=== PATIENT | male | born 1950 | race Caucasian/White ===

== ENCOUNTER 2017-07-29 21:19 | Observation (INO) | payer MEDICARE, BC ==
[2017-07-29] MEDS ORDERED: NALOXONE 0.4 MG/ML 1 ML VIAL IV PRN (22:40)
--- NOTE | 2017-07-29 22:47 | ED ---
General Adult HPI - General Chief complaint: Urogenital Stated complaint: Urinary retention Time Seen by Provider: 07/29/17 22:03 Source: patient, family, EMS, RN notes reviewed, old records reviewed (Chart reviewed from [facility]) Mode of arrival: EMS Limitations: no limitations - History of Present Illness Initial comments: Patient is a pleasant 67-year-old male presenting to the emergency Department as a transfer from [facility]. Patient did have difficulty with urinating and constipated feeling. Majority of history is taken from the brother. Patient had Danielle catheter placed with 2-1/2 L of urinary output. Patient did have a recent urinary tract infection and recently did finish Keflex. Patient did have noticed elevated BUN and creatinine. There was some concern for possible prostatitis and patient was given 2 g Rocephin. Patient states he does feel much better since Danielle catheter has been placed. - Related Data Home Medications Medication Instructions Recorded Confirmed Carbidopa-Levodopa 25-100 mg 1 tab PO DAILY 07/29/17 07/29/17 [Sinemet 25-100] Cholecalciferol [Vitamin D3] 2,000 unit PO DAILY 07/29/17 07/29/17 Docusate [Colace] 100 mg PO BID PRN 07/29/17 07/29/17 FLUoxetine HCL [PROzac] 20 mg PO HS 07/29/17 07/29/17 OLANZapine 20 mg PO HS 07/29/17 07/29/17 Pravastatin Sodium [Pravachol] 40 mg PO HS 07/29/17 07/29/17 lamoTRIgine [LaMICtal] 200 mg PO BID 07/29/17 07/29/17 Allergies Allergy/AdvReac Type Severity Reaction Status Date / Time ibuprofen [From Motrin] AdvReac Unknown Verified 07/29/17 21:45 imipramine [From Tofranil] AdvReac Rash/Hives Verified 07/29/17 21:45 Review of Systems ROS Statement: Those systems with pertinent positive or pertinent negative responses have been documented in the HPI. ROS Other: All systems not noted in ROS Statement are negative. Constitutional: Denies: fever Eyes: Denies: eye pain ENT: Denies: ear pain Respiratory: Denies: cough Cardiovascular: Denies: chest pain Endocrine: Denies: fatigue Gastrointestinal: Reports: constipation. Denies: vomiting Genitourinary: Reports: urgency Musculoskeletal: Denies: back pain Skin: Denies: rash Neurological: Denies: weakness Past Medical History Past Medical History: Hyperlipidemia Additional Past Medical History / Comment(s): parkinsons, constipation, History of Any Multi-Drug Resistant Organisms: None Reported Past Surgical History: No Surgical Hx Reported Past Psychological History: Depression, Schizophrenia Smoking Status: Never smoker Past Alcohol Use History: None Reported Past Drug Use History: None Reported General Exam Limitations: no limitations General appearance: alert, in no apparent distress Head exam: Present: atraumatic Eye exam: Present: normal appearance Neck exam: Present: normal inspection Respiratory exam: Present: normal lung sounds bilaterally Cardiovascular Exam: Present: regular rate, normal rhythm GI/Abdominal exam: Present: soft. Absent: tenderness exam: Present: normal inspection, other (No tenderness with deep palpation of the region between the rectum and scrotum.) Extremities exam: Present: normal inspection Neurological exam: Present: alert Psychiatric exam: Present: normal affect, normal mood Skin exam: Present: normal color Course Vital Signs 07/29/17 21:23 Temperature 98.0 F Pulse Rate 83 Respiratory 18 Rate Blood Pressure 114/71 O2 Sat by Pulse 98 Oximetry Disposition Clinical Impression: Acute renal failure, Urinary retention Disposition: ADMITTED IP TO THIS HOSP Is patient prescribed a controlled substance at d/c from ED?: No Referrals: Nonstaff,Physician [Primary Care Provider] - 1-2 days Decision Time: 22:47
[2017-07-29] MEDS: SODIUM CHLORIDE 0.9% 1,000 ML IV SCH (23:42)
[2017-07-30 00:28] VITALS: RESP 20
[2017-07-30 06:35] VITALS: BP 124/66; PULSE 73; TEMP 98.5
[2017-07-30] MEDS: SODIUM CHLORIDE 0.9% 1,000 ML IV SCH ×2 (07:38→14:52)
[2017-07-30 08:08] LABS: Albumin 2.8 g/dL (3.5-5.0); Calcium 8.2 mg/dL (8.4-10.2); Total Bilirubin 0.4 mg/dL (0.2-1.3); Total Protein 5.2 g/dL (6.3-8.2)
[2017-07-30 08:15] LABS: Basophils % (A) 1 %; Eosinophils # (A) 0.3 k/uL (0-0.7); Eosinophils % (A) 3 %; HCT 33.3 % (39.0-53.0); HGB 10.9 gm/dL (13.0-17.5); Lymphocytes # (A) 1.2 k/uL (1.0-4.8); Lymphocytes % (A) 15 %; MCH 30.3 pg (25.0-35.0); MCHC 32.7 g/dL (31.0-37.0); MCV 92.8 fL (80.0-100.0); Mean Platelet Volume 6.6; Monocytes # (A) 0.6 k/uL (0-1.0); Monocytes % (A) 7 %; Neutrophils # (A) 5.8 k/uL (1.3-7.7); Neutrophils % (A) 71 %; Platelet Count 325 k/uL (150-450); RBC 3.59 m/uL (4.30-5.90); RDW 12.8 % (11.5-15.5); WBC 8.1 k/uL (3.8-10.6)
[2017-07-30] MEDS ORDERED: ENOXAPARIN 40 MG/0.4 ML SYRINGE SQ SCH (09:00)
[2017-07-30] MEDS ORDERED: CARBIDOPA-LEVODOPA 25-100 MG 1 EACH TAB PO SCH (09:00)
[2017-07-30] MEDS ORDERED: lamoTRIgine 100 MG TAB PO SCH (09:00)
--- NOTE | 2017-07-30 11:42 | P.GSCN ---
History of Present Illness Consult date: 07/30/17 History of present illness: The patient is a 67-year-old gentleman who comes from [facility] emergency room in urine retention. The patient has chronic schizophrenia and has lived in adult foster care for many years. Apparently the patient was voiding relatively normally until a week or so ago when he was treated for urinary infection with Keflex by his local medical doctor. He also started having problems with severe constipation. He had a catheter draining 2-1/2 L of urine. The urine is clear. Apparently had some renal failure [facility]. I do not know the level of the creatinine. It is 1.1 for your yesterday. The patient responds relatively well to direct questioning. He states that he has not had problems urinating before he has not had a urologist before. He was not on Flomax that I can tell. He states that he had one urine infection in the past. He was incontinent recently. He had constipation that was treated recently. He has not been on any new medications. He has not had any change in his psychiatric status. Review of Systems - Gastrointestinal Reports constipation - Genitourinary Reports as per HPI Past Medical History Past Medical History: Hyperlipidemia Additional Past Medical History / Comment(s): parkinsons, constipation, History of Any Multi-Drug Resistant Organisms: None Reported Past Surgical History: No Surgical Hx Reported Past Psychological History: Depression, Schizophrenia Smoking Status: Never smoker Past Alcohol Use History: None Reported Past Drug Use History: None Reported Medications and Allergies Home Medications Medication Instructions Recorded Confirmed Type Carbidopa-Levodopa 25-100 mg 1 tab PO DAILY 07/29/17 07/29/17 History [Sinemet 25-100] Cholecalciferol [Vitamin D3] 2,000 unit PO DAILY 07/29/17 07/29/17 History Docusate [Colace] 100 mg PO BID PRN 07/29/17 07/29/17 History FLUoxetine HCL [PROzac] 20 mg PO HS 07/29/17 07/29/17 History OLANZapine 20 mg PO HS 07/29/17 07/29/17 History Pravastatin Sodium [Pravachol] 40 mg PO HS 07/29/17 07/29/17 History lamoTRIgine [LaMICtal] 200 mg PO BID 07/29/17 07/29/17 History Allergies Allergy/AdvReac Type Severity Reaction Status Date / Time ibuprofen [From Motrin] AdvReac Unknown Verified 07/29/17 21:45 imipramine [From Tofranil] AdvReac Rash/Hives Verified 07/29/17 21:45 Surgical - Exam Vital Signs Temp Pulse Resp BP Pulse Ox 98.0 F 83 18 114/71 98 07/29/17 21:23 07/29/17 21:23 07/29/17 21:23 07/29/17 21:23 07/29/17 21:23 - General well developed, well nourished, no distress - Eyes PERRL - ENT no hearing loss - Neck trachea midline - Cardiovascular Rhythm: regular - Abdomen Abdomen: soft, non tender - Genitourinary He has no indwelling catheter. Penis testicles unremarkable. The prostate is 20 g soft and benign - Rectum Rectum: normal sphincter tone - Integumentary no rash, no growths - Neurologic normal coordination, normal sensation - Musculoskeletal normal posture - Psychiatric oriented to time, oriented to person, oriented to place Results - Labs 07/30/17 07:27 07/30/17 07:27 Abnormal Lab Results - Last 24 Hours (Table) 07/30/17 07/30/17 Range/Units 07:27 07:27 RBC 3.59 L (4.30-5.90) m/uL Hgb 10.9 L (13.0-17.5) gm/dL Hct 33.3 L (39.0-53.0) % Calcium 8.2 L (8.4-10.2) mg/dL Total Protein 5.2 L (6.3-8.2) g/dL Albumin 2.8 L (3.5-5.0) g/dL Microbiology - Last 24 Hours (Table) 07/29/17 22:53 Urine Culture - Preliminary Urine,Catheterized Diabetes panel 07/30/17 Range/Units 07:27 Sodium 142 (137-145) mmol/L Potassium 4.0 (3.5-5.1) mmol/L Chloride 106 (98-107) mmol/L Carbon Dioxide 28 (22-30) mmol/L BUN 20 (9-20) mg/dL Creatinine 1.14 (0.66-1.25) mg/dL Glucose 97 (74-99) mg/dL Calcium 8.2 L (8.4-10.2) mg/dL AST 24 (17-59) U/L ALT 35 (21-72) U/L Alkaline Phosphatase 75 (38-126) U/L Total Protein 5.2 L (6.3-8.2) g/dL Albumin 2.8 L (3.5-5.0) g/dL Calcium panel 07/30/17 Range/Units 07:27 Calcium 8.2 L (8.4-10.2) mg/dL Albumin 2.8 L (3.5-5.0) g/dL Pituitary panel 07/30/17 Range/Units 07:27 Sodium 142 (137-145) mmol/L Potassium 4.0 (3.5-5.1) mmol/L Chloride 106 (98-107) mmol/L Carbon Dioxide 28 (22-30) mmol/L BUN 20 (9-20) mg/dL Creatinine 1.14 (0.66-1.25) mg/dL Glucose 97 (74-99) mg/dL Calcium 8.2 L (8.4-10.2) mg/dL Adrenal panel 07/30/17 Range/Units 07:27 Sodium 142 (137-145) mmol/L Potassium 4.0 (3.5-5.1) mmol/L Chloride 106 (98-107) mmol/L Carbon Dioxide 28 (22-30) mmol/L BUN 20 (9-20) mg/dL Creatinine 1.14 (0.66-1.25) mg/dL Glucose 97 (74-99) mg/dL Calcium 8.2 L (8.4-10.2) mg/dL Total Bilirubin 0.4 (0.2-1.3) mg/dL AST 24 (17-59) U/L ALT 35 (21-72) U/L Alkaline Phosphatase 75 (38-126) U/L Total Protein 5.2 L (6.3-8.2) g/dL Albumin 2.8 L (3.5-5.0) g/dL Assessment and Plan Assessment: Impression: Urinary retention, acute. Constipation, treated. Renal failure secondary to urine retention. Chronic schizophrenia. Recommendations: Due to the large volume of urine, 2-1/2 L spontaneous voiding in the next week would be unlikely. He should be placed on Flomax 0.4 mg daily. He can be discharged back to his foster care with an indwelling catheter. I would see him in approximately 2 weeks. The catheter should be removed 8 hours prior to the office visit for a voiding trial. This has been discussed at length with the patient's mother and brother.
--- NOTE | 2017-07-30 17:14 | HP ---
HISTORY AND PHYSICAL HISTORY AND PHYSICAL AND DISCHARGE SUMMARY: DATE OF ADMISSION: 07/29/2017 DATE OF DISCHARGE: 07/30/2017 DATE OF SERVICE: 07/30/2017 PRESENTING COMPLAINT: Difficulty urinating. HISTORY OF PRESENTING COMPLAINT: This is a pleasant 67-year-old patient who follows with Dr. Jeff Page. Chronic stable medical conditions include hyperlipidemia, Parkinson's disease, schizophrenia, depression. Patient lives in an adult foster usp. Patient is here with his mother and his brother. Brother gives most of the history. Patient started having difficulty with urination, finding it difficult to make urine. Patient also normally has a bowel movement once or twice a week. He started becoming more and more constipated. Because patient could not make much urine and having more trouble, patient presented to the local hospital. Catheter was placed and 2.5 L of urine was obtained, a little bit foul-appearing. Patient was sent here for further management. Apparently patient's last bowel movement was 4 days ago. Patient's blood work at the other hospital showed a BUN of 29, creatinine of 2.2, white count of 16.3. Patient also had just finished a course of antibiotics for a UTI and patient was sent down here for evaluation by a urologist. Otherwise patient's diet is stable. No fever. No chills. No chest pains. REVIEW OF SYSTEMS: CONSTITUTIONAL: Tired. HEENT: None. RESPIRATORY: None. CARDIOVASCULAR: None. GASTROINTESTINAL: As above. GENITOURINARY: As above. MUSCULOSKELETAL: None. DERMATOLOGICAL: None. HEMATOLOGICAL: None. LYMPHATICS: None. PSYCHIATRY: None. NEUROLOGICAL: Tremors. Slow to walk. PAST MEDICAL HISTORY: 1. Hyperlipidemia. 2. Parkinson's disease. 3. Schizophrenia. 4. Depression. PAST SURGICAL HISTORY: No surgical history. SOCIAL HISTORY: Patient lives at [facility]. Did smoke in the past. No alcohol. FAMILY HISTORY: Reviewed; noncontributory to presentation. HOME MEDICATIONS: 1. Lamictal 200 mg b.i.d. 2. Pravachol 40 mg at bedtime. 3. Olanzapine 20 mg at bedtime. 4. Prozac 20 mg at bedtime. 5. Sinemet 25/100 one tablet p.o. daily. 6. Colace 100 mg b.i.d. p.r.n. 7. Vitamin D3 2000 units p.o. daily. ALLERGIES: MOTRIN AND TOFRANIL. PHYSICAL EXAMINATION: VITAL SIGNS ON PRESENTATION: Temperature 98, pulse 83, respiration 18, blood pressure 114/71, pulse ox 98% on room air. GENERAL APPEARANCE: Average build. Sitting up in a chair. Awake. EYES: Pupils equal. Conjunctivae normal. HEENT: External appearance of nose and ears normal. Oral cavity normal. Patient has a flat affect. RESPIRATORY: Effort normal. Lungs are clear. CARDIOVASCULAR: First and second sounds normal. No edema. ABDOMEN: Soft, nontender. Liver and spleen not palpable. LYMPHATIC: No lymph node palpable in neck or axillae. PSYCHIATRY: Alert and oriented x3. Mood and affect somewhat low. NEUROLOGICAL: Pupils equal. Cranial nerves grossly intact. Power and sensation grossly intact. Patient has a resting pill-rolling tremor. GENITOURINARY: Patient has a Danielle catheter in place. INVESTIGATIONS: Patient's blood work from [facility] showed a white count of 16.3, hemoglobin 12.4, platelets 355, BUN 22, creatinine 2.2. Here, the labs showed a white count of 8.1, hemoglobin 10.9, potassium 4.0, BUN 20, creatinine 1.14. Patient's UA was unremarkable from the other hospital. ASSESSMENT: 1. Acute renal failure from obstructive uropathy, probably from an enlarged prostate. 2. Likely benign prostatic hypertrophy. 3. Chronic idiopathic constipation. Patient has a bowel movement 1-2 times . 4. Parkinson's disease. 5. Schizophrenia. 6. Depression not otherwise specified. 7. Hyperlipidemia. PLAN: Patient's renal function has normalized. Urology was consulted, who will see the patient as an outpatient. Patient has no other evidence of infection. Patient will be started on MiraLAX alternate day. Other home medications are resumed. Will also discontinue patient's Colace. Care was discussed at length with the patient, patient's brother and mother. Questions were answered. Patient is being discharged home. Follow up with Dr. Page in 3 days. Follow up with Dr. Waddell in one week. This is both a history and physical and a discharge summary. MMODL / IJN: [id number] /
[2017-07-30] MEDS ORDERED: TAMSULOSIN 0.4 MG CAP.ER.24H PO SCH (18:30)
[2017-07-30] MEDS ORDERED: PRAVASTATIN SODIUM 40 MG TAB PO SCH (21:00)
[2017-07-30] MEDS ORDERED: OLANZapine 10 MG TAB PO SCH (21:00)
[2017-07-30] MEDS ORDERED: FLUoxetine HCL 20 MG CAP PO SCH (21:00)
== END 2017-07-30 17:22 | disposition home health service (06) ==
LOC: EC 21:19 → 4MS4W 22:40
PROVIDERS: ADMIT Hospitalist; ATTEND Hospitalist
DX: N17.9 Acute kidney failure, unspecified (principal); N13.9 Obstructive and reflux uropathy, unspecified; K59.04 Chronic idiopathic constipation; E78.5 Hyperlipidemia, unspecified; G20 Parkinson's disease; F20.9 Schizophrenia, unspecified; F32.9 Major depressive disorder, single episode, unspecified; Z87.891 Personal history of nicotine dependence; Z79.899 Other long term (current) drug therapy; Z88.8 Allergy status to other drugs, medicaments and biological substances; Z87.440 Personal history of urinary (tract) infections
CPT/HCPCS: 99285 ×2; 97163; 80053; 85025; 87086; G0378 ×2

== ENCOUNTER 2021-09-11 13:46 | Emergency (ER) | payer MEDICARE, OTHER ==
[2021-09-11] MEDS ORDERED: ROCURONIUM 10 MG/ML (5 ML VIAL) IV ONE (13:53)
[2021-09-11 14:06] VITALS: BP 63/41; PULSE 42; RESP 16
[2021-09-11 14:12] LABS: Glucose,Whole Blood 139 mg/dL (70-110)
--- NOTE | 2021-09-11 16:42 | ED ---
Altered Mental Status HPI - General Chief Complaint: Altered Mental Status Stated Complaint: unresponsive Time Seen by Provider: 09/11/21 13:55 Source: EMS Mode of arrival: EMS Limitations: altered mental status - History of Present Illness Initial Comments: 71-year-old male with past medical history of Parkinson's and schizophrenia presents emergency department from [facility]. EMS reports that there told by staff that he had been acting altered all day. He had recently been treated for high ammonia levels with lactulose. He continued to have persistent and worsening mental status with increased work of breathing and therefore EMS was called. En route to the hospital patient began having increased difficulty with breathing and by the time he arrived at the hospital with agonal. Oxygen saturation was noted to be 63% without oxygen. Patient normally does not wear oxygen. He has a history of dementia but is usually conversational. They deny that he had any complaints originally. He does have a healing bruise over his right eye. I am told by EMS that he fell couple of days ago. Remainder of the HPI is limited because the patient's current status - Related Data Home Medications Medication Instructions Recorded Confirmed Carbidopa-Levodopa 25-100 mg 1 tab PO BID 07/29/17 09/11/21 [Sinemet 25-100 mg] FLUoxetine HCL [PROzac] 20 mg PO HS 07/29/17 09/11/21 OLANZapine 20 mg PO HS 07/29/17 09/11/21 lamoTRIgine [LaMICtal] 200 mg PO BID 07/29/17 09/11/21 Acetaminophen [Tylenol] 650 mg PO Q4H PRN 09/11/21 09/11/21 Atorvastatin [Lipitor] 10 mg PO HS 09/11/21 09/11/21 Benztropine Mesylate [Cogentin] 1 mg PO DAILY 09/11/21 09/11/21 Cholecalciferol [Vitamin D3 (25 25 mcg PO DAILY 09/11/21 09/11/21 Mcg = 1000 Iu)] Docusate [Colace] 100 mg PO BID 09/11/21 09/11/21 Lactulose 20 gm PO DAILY 09/11/21 09/11/21 Tamsulosin [Flomax] 0.4 mg PO HS 09/11/21 09/11/21 Allergies Allergy/AdvReac Type Severity Reaction Status Date / Time ibuprofen [From Motrin] AdvReac Unknown Verified 07/29/17 21:45 imipramine [From Tofranil] AdvReac Rash/Hives Verified 07/29/17 21:45 Review of Systems ROS Statement: Those systems with pertinent positive or pertinent negative responses have been documented in the HPI. ROS Other: All systems not noted in ROS Statement are negative. Past Medical History Past Medical History: Hyperlipidemia Additional Past Medical History / Comment(s): parkinsons, constipation, History of Any Multi-Drug Resistant Organisms: None Reported Past Surgical History: No Surgical Hx Reported Past Psychological History: Depression, Schizophrenia Smoking Status: Unknown if ever smoked Past Alcohol Use History: None Reported Past Drug Use History: None Reported General Exam Limitations: altered mental status General appearance: obtunded, in distress, other (agonal breathing. unresponsive to painful stimuli) Head exam: Present: normocephalic, other (right periorbital ecchymosis in healing states) Eye exam: Present: other (dilated, 8 mm and unreactive) ENT exam: Present: mucous membranes dry, other (dark black material in posterior pharynx) Respiratory exam: Present: other (agonal, coarse breath sounds bilaterally) Cardiovascular Exam: Present: bradycardia GI/Abdominal exam: Present: soft, normal bowel sounds. Absent: distended, tenderness, guarding, rebound, rigid Extremities exam: Present: other (no spontanous movement) Neurological exam: Present: altered, other (non responsive to sternal rub) Skin exam: Present: pallor Course Vital Signs 09/11/21 13:56 Pulse Rate 42 L Respiratory 16 Rate Blood Pressure 63/41 O2 Sat by Pulse 89 L Oximetry Procedures - Intubation Paralytic: Rocuronium Mg Given: 50 Laryngoscope: fiber optic video scope Size: 4 ET Tube Size: 7.5 ET Tube Uncuffed: No Tube Secured Depth (cm): 24 Tube Secured Location: teeth Tube Placement Confirmation: visualized tube passing through cords, equal breath sounds bilaterally, no breath sounds over epigastrium, confirmation by c apnometry Patient Tolerated Procedure: well, no complications Medical Decision Making - Medical Decision Making Upon arrival patient is placed into a trauma 2. He is agonally breathing. Because of this and the report that the patient is a full code, the patient is intubated. I did used the glidescope to intubate the patient with a 7.5 cm tube. Tube was secured at 24 cm at the teeth. 50 g of rocuronium was utilized. Patient does have very poor oxygen saturations previous to intubation. Patient does have a blood pressure of 63/41. He is given a push dose of epinephrine. He has no improvement in heart rate with this. He does become bradycardic, widens his QRS. He was given 1 amp of calcium chloride, 2 g of magnesium, 2 A of sodium bicarb without any improvement in his rhythm. QRS remains wide and patient bradys down to PEA. CPR was initiated and the patient received multiple rounds of epinephrine without return of cardiac activity. Bedside ultrasound using parasternal long axis and parasternal short axis demonstrates no visible cardiac activity with cardiac standstill. I did call to speak with the patient's sister. States that she would like to request that the patient receive no further CPR at this time. Admits that the patient has had poor quality of life over the past 2 months in rehab. CPR is ceased at this time. Time of is called at 1429. chief bank examiner and physician Dr. Vanegas at [facility] are made aware. - Lab Data Lab Results 09/11/21 Range/Units 14:01 POC Glucose (mg/dL) 139 H (70-110) mg/dL POC Glu Reports Developer ID Jennie Ryan - EKG Data EKG Comments: EKG demonstrates a bradycardic, wide rhythm with a rate of 43. QRS 203. QTC of 441. Right bundle-branch block. Critical Care Time Critical Care Time: Yes Critical Care Time: 40 minutes Disposition Clinical Impression: Respiratory failure with hypoxia, Cardiac arrest, Hypotension, Bradycardia Disposition: Referrals: Jeff Page MD [Primary Care Provider] - 1-2 days Preliminary Cause of : cardiac arrest, respiratory arrest
== END 2021-09-11 18:00 | disposition expired ==
LOC: EC 13:46
DX: I46.9 Cardiac arrest, cause unspecified (principal); J96.91 Respiratory failure, unspecified with hypoxia; I95.9 Hypotension, unspecified; E78.5 Hyperlipidemia, unspecified; F32.A Depression, unspecified; F20.9 Schizophrenia, unspecified; G20 Parkinson's disease; Z79.899 Other long term (current) drug therapy
CPT/HCPCS: 31500; 36415; 92950; 99291